=== PATIENT | female | born 1985 | race Caucasian/White ===

== ENCOUNTER 2016-07-20 19:17 | Emergency (ER) | payer OTHER ==
[2016-07-20] MEDS ORDERED: NS 1,000 ML IV ONE (20:20)
[2016-07-20] MEDS ORDERED: IOPAMIDOL (ISOVUE-300) 100 ML BTL IV ONE (20:40)
--- NOTE | 2016-07-20 20:56 | EDPHY ---
H & P Time Seen by Provider: 07/20/16 19:38 HPI/ROS: Chief complaint. Abdominal pain HPI. 30-year-old female history of Crohn's disease presents with mid abdominal pain that began this morning. Initially was dull and intermittent in this evening is more constant and sharp. No radiation. She had a colonoscopy 5 days ago but apparently due to her Crohn's disease the colonoscopy was difficult to pass the scope and the continuous yarn dyeing machine operator was unable to finish secondary to pain to the patient. She did has some discomfort following day but then has been asymptomatic until today. Tonight she developed chills and decreased appetite. No vomiting. She is having normal bowel movements without blood. Last menstrual period 4 days ago. Patient had labs drawn this afternoon including CBC, chemistry, INR She is history DVT/PE the so takes Coumadin ROS Constitutional. Chills Eyes. no problems with vision ENT. no sore throat, no nasal drainage Cardiovascular. no chest pain Respiratory. no shortness of breath, no cough Abdominal. Mid abdominal pain without vomiting or diarrhea . no problems urinating MS. no calf pain/swelling, no neck/back pain, no joint pain Skin. no rash Lymph. no swollen glands Neuro. no headache, no dizziness, no difficulty walking or with speech Past Medical/Surgical History: Pulmonary embolus and Crohn's disease Social History: , nonsmoker, no alcohol Smoking Status: Never smoked Physical Exam: General Appearance: Alert pleasant well-developed female mild distress vital signs are stable. Temp 37.3degrees Eyes: Pupils equal and round no pallor or injection. ENT, Mouth: Mucous membranes are moist. Respiratory: There are no retractions, lungs are clear to auscultation. Cardiovascular: Regular rate and rhythm. Gastrointestinal: Abdomen is soft with mid periumbilical tenderness. No masses. Bowel sounds are normal Neurological: Awake and alert, sensory and motor exams grossly normal. Skin: Warm and dry, no rashes. Musculoskeletal: Neck is supple nontender. Extremities symmetrical, full range of motion. Psychiatric: Patient is oriented X 3, there is no agitation. Constitutional: Initial Vital Signs Temperature (C) 37.3 C 07/20/16 19:22 Heart Rate 98 07/20/16 19:22 Respiratory Rate 16 07/20/16 19:22 Blood Pressure 135/88 H 07/20/16 19:22 O2 Sat (%) 100 07/20/16 19:22 O2 Delivery Mode Room Air Allergies/Adverse Reactions: azathioprine [From Imuran] Allergy (Verified 07/20/16 19:20) azathioprine sodium [From Imuran] Allergy (Verified 07/20/16 19:20) Home Medications: Medication Instructions Recorded COUMADIN 03/22/10 ENTOCORT EC 03/22/10 FOLIC ACID 07/20/16 Medical Decision Making - Diagnostics Imaging: CT abdomen pelvis with IV contrast shows no definite intra-abdominal free air. She does have air in the abdominal muscle wall. Upright KUB reviewed by me and discussed with Dr. Garzon shows no evidence of free of under the diaphragm Procedures: IV normal saline I reviewed patient's labs from this afternoon. She had a normal white blood cell count. Her at INR is a low at 1.29. I did discuss this with the patient. ED Course/Re-evaluation: On re-evaluation patient is stable. She is given a g of Invanz. I have consulted and discussed the case with Dr. Phillip Shah conference services coordinator for Gastroenterology and then subsequently discussed case with Dr. mills the patient's continuous yarn dyeing machine operator. I have also consulted and discussed case with Dr. Deshawn Russell surgeon who sees the patient in the emergency department. The turns out that the patient is on Coumadin and she was bridging for her colonoscopy procedure with Lovenox injections and this is likely the source of the intra muscular free air. Patient and I discussed treatment plan, criteria for return, importance of follow-up and further evaluation. She expresses understanding and agreement Patient is given the option of admission but she feels comfortable going home. Differential Diagnosis: I considered perforation and free air in the abdomen. The abdominal muscle free air I believe is secondary to the Lovenox injections. - Data Points Medications Given: Discontinued Medications Sodium Chloride (Ns) 1,000 mls @ 0 mls/hr IV ONCE ONE PRN Reason: Wide Open Stop: 07/20/16 20:21 Last Admin: 07/20/16 20:39 Dose: 1,000 mls Ertapenem 1 gm/ Sodium (Chloride) 100 mls @ 200 mls/hr IV EDNOW ONE PRN Reason: Protocol Stop: 07/20/16 22:26 Last Admin: 07/20/16 22:20 Dose: 100 mls Departure - Departure Disposition: Home, Routine, Self-Care Clinical Impression: Abdominal pain Qualifiers: Abdominal location: periumbilical Qualified Code(s): R10.33 - Periumbilical pain Condition: Good Instructions: Acute Abdominal Pain (ED) Additional Instructions: Regular eating and drinking. Tylenol or hydrocodone as needed for pain. Return tonight for worsening symptoms. Follow up with Dr. Magaña tomorrow without fail Referrals: Bridgett Augustine MD [Primary Care Provider] - As per Instructions Trey Magaña MD [Medical Doctor] - 1 day without fail
[2016-07-20] MEDS ORDERED: ERTAPENEM 1 GM in NS 100 ML IV ONE (21:57)
[2016-07-20] MEDS ORDERED: HYDROCOD/APAP 5/325 PREPACK#6 BTL TAKEHOME ONE (22:59)
[2016-07-20 23:11] VITALS: BP 109/77; PULSE 76; RESP 18; TEMP 98.2; O2SAT 95
== END 2016-07-20 23:12 | disposition home or self-care (01) ==
DX: R10.33 Periumbilical pain (principal); Z79.01 Long term (current) use of anticoagulants
CPT/HCPCS: 96365; J1335; Q9967

== ENCOUNTER → 2017-02-15 | Outpatient (CLI) | payer OTHER | LOC: FIMAGING 13:53 | DX: S82.64XD Nondisplaced fracture of lateral malleolus of right fibula, subsequent encounter for closed fracture with routine healing (principal); S93.401A Sprain of unspecified ligament of right ankle, initial encounter; T14.8 Other injury of unspecified body region ==

== ENCOUNTER → 2017-03-11 | Outpatient (CLI) | payer OTHER | LOC: FIMAGING 14:54 | PROVIDERS: ATTEND Family Medicine Sports Medicine | DX: R07.81 Pleurodynia (principal); M41.80 Other forms of scoliosis, site unspecified; M85.80 Other specified disorders of bone density and structure, unspecified site ==

== ENCOUNTER → 2017-05-26 | Outpatient (CLI) | payer OTHER | LOC: FIMAGING 10:21 | PROVIDERS: ATTEND Internal Medicine | DX: Z13.820 Encounter for screening for osteoporosis (principal); M85.89 Other specified disorders of bone density and structure, multiple sites ==

== ENCOUNTER 2017-07-08 07:20 | Day surgery (SDC) | payer OTHER ==
[2017-07-08] MEDS ORDERED: LR 1,000 ML IV ONE (07:36)
[2017-07-08 08:18] LABS: INR 1.09 (0.83-1.16); PROTIME(PATIENT) 14.3 SEC (12.0-15.0)
--- NOTE | 2017-07-08 09:19 | PDGENHP ---
History & Physical Chief Complaint: IBD History of Present Illness: IBD x 11-12 years Pertinent Past, Social, Family History: fhx - no IBD, no cc , dad polyps after 60. no tobacco, no alcohol Relevant Physical Exam: A+ox3. CTA. S1S2, RRR. +BS ,soft nt Cardiorespiratory Assessment: class 2
--- NOTE | 2017-07-08 09:33 | PDANEPAE ---
ANE Past Medical History - Cardiovascular History Hx Hypertension: No Hx Arrhythmias: No Hx Chest Pain: No Hx Coronary Artery / Peripheral Vascular Disease: No Hx CHF / Valvular Disease: No Hx Palpitations: No - Pulmonary History Hx COPD: No Hx Asthma/Reactive Airway Disease: No Hx Recent Upper Respiratory Infection: No Hx Oxygen in Use at Home: No Hx Sleep Apnea: No Sleep Apnea Screening Result - Last Documented: Negative - Neurologic History Hx Cerebrovascular Accident: No Hx Seizures: No Hx Dementia: No - Endocrine History Hx Diabetes: No - Renal History Hx Renal Disorders: No - Liver History Hx Hepatic Disorders: No - Neurological & Psychiatric Hx Hx Neurological and Psychiatric Disorders: No - Cancer History Hx Cancer: No - Congenital Disorder History Hx Congenital Disorders: No - GI History Hx Gastrointestinal Disorders: Yes Gastrointestinal History Comment: chron's - Other Health History Other Health History: hx of broken right ankle in 01/2017 still doing PT - Chronic Pain History Chronic Pain: No - Surgical History Prior Surgeries: liver biopsies. colonoscopy. wisdom teeth removed ANE Review of Systems Review of Systems: - Exercise capacity METS (RN): 4 METS ANE Patient History - Allergies Allergies/Adverse Reactions: azathioprine [From Imuran] Allergy (Verified 07/08/17 07:38) pancreatitis azathioprine sodium [From Imuran] Allergy (Verified 07/08/17 07:38) pancreatitis - Home Medications Home Medications: COUMADIN 03/22/10 [Last Taken 07/04/17] FOLIC ACID 07/20/16 [Last Taken 07/07/17] Balsalazide Disodium 06/28/17 [Last Taken 07/07/17] Methotrexate 06/28/17 [Last Taken 07/04/17] Uceris 06/28/17 [Last Taken 07/06/17] - NPO status NPO Since - Liquids (Date): 07/07/17 NPO Since - Liquids (Time): 23:15 NPO Since - Solids (Date): 07/07/17 NPO Since - Solids (Time): 08:30 - Smoking Hx Smoking Status: Never smoked - Family Anes Hx Family Hx Anesthesia Complications: none ANE Labs/Vital Signs - Vital Signs Blood Pressure: 116/94 Heart Rate: 118 Respiratory Rate: 16 O2 Sat (%): 98 Height: 157.48 cm Weight: 49.895 kg ANE Physical Exam - Airway Neck exam: FROM Mallampati Score: Class 2 Mouth exam: normal dental/mouth exam - Pulmonary Pulmonary: no respiratory distress - Cardiovascular Cardiovascular: regular rate and rhythym - ASA Status ASA Status: II ANE Anesthesia Plan Total IV Anesthesia: Yes
[2017-07-08] MEDS ORDERED: PROPOFOL/EMULSION 500 MG/50 ML BOTTLE IV ONE (09:42)
[2017-07-08] MEDS ORDERED: LIDOCAINE 2% 100 MG/5 ML SYR ONE (09:44)
[2017-07-08] MEDS ORDERED: fentaNYL 100 MCG/2 ML INJ ONE (09:53)
[2017-07-08] MEDS ORDERED: NALOXONE HCL 0.4 MG/ML INJ IVP PRN (10:33)
[2017-07-08] MEDS ORDERED: ALBUTEROL 3 ML DEYVIAL IH PRN (10:33)
[2017-07-08] MEDS ORDERED: ONDANSETRON 4 MG/2 ML VIAL IVP PRN (10:33)
[2017-07-08] MEDS ORDERED: fentaNYL 100 MCG/2 ML INJ IVP PRN (10:33)
--- NOTE | 2017-07-08 10:35 | POSTANESTH ---
Post Anesthetic Evaluation Cardiovascular Status: Similar to Pre-Op Cond Respiratory Status: Similar to Pre-op Cond. Level of Consciousness/Mental Status: Mildly Sleepy, Arousable Pain Control: Adequate, Prn Tx Ordered Nausea/Vomiting Control: Adequate, Prn Tx Ordered Complications Possibly Related to Anesthesia: None Noted
--- NOTE | 2017-07-08 10:39 | GIREPORT ---
[facility] Surgical Services - Endoscopy Department Patient Name: Ashwini Soto Procedure Date: 07/08/2017 9:22 AM Patient Type: Outpatient Attending MD/ ER Physician: Jeremiah Garcia Procedure: Colonoscopy Indications: High risk colon cancer surveillance: Crohn's small and large intestine, High risk colon cancer surveillance: Crohn's colitis of 8 (or more) years du ration Providers: Glynn Magaña MD Referring MD: Bridgett Augustine Medicines: Total IV Anesthesia (TIVA) Complications: No immediate complications. Estimated blood loss: Minimal. Description of Procedure: After obtaining informed consent, the scope was passed under direct vis ion. Throughout the procedure, the patient's blood pressure, pulse, and oxyg en saturations were monitored continuously. The Colonoscope was introduced through the anus and advanced to the terminal ileum, with identificatio n of the appendiceal orifice and IC valve. The colonoscopy was performed wit hout difficulty. The patient tolerated the procedure well. The quality of th e bowel preparation was good. Findings: The digital rectal exam was normal. The terminal ileum appeared normal. A scattered area of mildly altered vascular mucosa was found in the ent gabrielle colon. Four biopsies were taken every 10 cm with a cold forceps from th e cecum, ascending colon, right transverse colon, left transverse colon, descending colon, sigmoid colon and rectum for Crohn's disease [facility]. These biopsy specimens from the right colon and left colon were sent to Pathology. Estimated blood loss was minimal. A 3 mm polyp was found in the recto-sigmoid colon. The polyp was sessil e. The polyp was removed with a piecemeal technique using a cold biopsy forceps. Resection and retrieval were complete. Estimated blood loss wa s minimal. The exam was otherwise without abnormality. Estimated Blood Loss: Estimated blood loss was minimal. Post Op Diagnosis: - The examined portion of the ileum was normal. - Altered vascular mucosa in the entire examined colon. Biopsied. - One 3 mm polyp at the recto-sigmoid colon, removed piecemeal using a cold biopsy forceps. Resected and retrieved. - The examination was otherwise normal. Recommendation: - Await pathology results. - My office will call with the pathology result with 5-7 days. If you h ave not heard from my office by 12-14, do not assume the pathology is kameron l, please call [phone] to get the pathology reults. - Continue present medications. - Repeat colonoscopy in 1 year for surveillance based on pathology resu lts. - Patient has a contact number available for emergencies. The signs and symptoms of potential delayed complications were discussed with the pat ient. Return to normal activities tomorrow. Written discharge instructions we re provided to the patient. - Return to primary care physician as previously scheduled. - Return to endoscopist as previously scheduled. - Thank you for allowing me to help in your patient's care. Do not hesi reinoso to call with any questions. Attending Participation: I personally performed the entire procedure. Gómez Maki M.D Glynn Magaña MD 07/08/2017 10:39:14 AM This report has been signed electronicallyMathew MD Gómez Number of Addenda: 0 Note Initiated On: 07/08/2017 9:22 AM Total Procedure Duration Time 0 hours 34 minutes 29 seconds [email or web address]
[2017-07-08 11:07] VITALS: BP 105/83; PULSE 91; RESP 16; TEMP 97.9; O2SAT 97
== END 2017-07-08 12:05 | disposition home or self-care (01) ==
LOC: FSGY 07:20
PROVIDERS: ATTEND Internal Medicine Gastroenterology
PROC: 0DBN8ZX Excision of Sigmoid Colon, Via Natural or Artificial Opening Endoscopic, Diagnostic (ICD-10-PCS; principal; 2017-07-08 09:00)
PROC: 0DBM8ZX Excision of Descending Colon, Via Natural or Artificial Opening Endoscopic, Diagnostic (ICD-10-PCS; principal; 2017-07-08 09:00)
PROC: 0DBH8ZX Excision of Cecum, Via Natural or Artificial Opening Endoscopic, Diagnostic (ICD-10-PCS; principal; 2017-07-08 09:00)
PROC: 0DBL8ZX Excision of Transverse Colon, Via Natural or Artificial Opening Endoscopic, Diagnostic (ICD-10-PCS; principal; 2017-07-08 09:00)
PROC: 0DBK8ZX Excision of Ascending Colon, Via Natural or Artificial Opening Endoscopic, Diagnostic (ICD-10-PCS; principal; 2017-07-08 09:00)
DX: Z12.11 Encounter for screening for malignant neoplasm of colon (principal); D12.5 Benign neoplasm of sigmoid colon; D12.8 Benign neoplasm of rectum; K50.90 Crohn's disease, unspecified, without complications
CPT/HCPCS: J2001; J2704; J3010